=== PATIENT | female | born 1990 | race Caucasian/White ===

== ENCOUNTER 2016-11-21 12:31 | Outpatient (CLI) | payer BC ==
[~2016-11-21] VITALS: Ht 165.1 cm; Wt 80.5 kg
[2016-11-21 13:00] VITALS: BP 119/66; PULSE 72; TEMP 98.3
[2016-11-21] MEDS ORDERED: PRENATAL1 TA7 PO (13:43)
== END 2016-11-21 14:10 | disposition home or self-care (01) ==
LOC: LDRO 12:31
DX: Z03.71 Encounter for suspected problem with amniotic cavity and membrane ruled out (principal)

== ENCOUNTER 2017-01-26 20:33 | Outpatient (CLI) | payer BC ==
[~2017-01-26] VITALS: Ht 165.1 cm; Wt 84.1 kg
[~2017-01-26 20:33] MED LIST: PRENATAL1 TA7 PO
[2017-01-26 20:59] VITALS: BP 128/75; PULSE 90; TEMP 98.3
[2017-01-26 21:15] VITALS: BP 128/72; PULSE 78; TEMP 98.3
[2017-01-26 22:00] VITALS: BP 115/59; PULSE 81
== END 2017-01-26 22:05 | disposition home or self-care (01) ==
LOC: LDRO 20:33
DX: O62.9 Abnormality of forces of labor, unspecified (principal); Z3A.38 38 weeks gestation of pregnancy

== ENCOUNTER 2017-02-10 07:00 | Inpatient (IN) | payer BC ==
[~2017-02-10] VITALS: Ht 165.1 cm; Wt 84.5 kg
[2017-02-10] VITALS (43 sets, daily range): BP systolic 95–141; BP diastolic 54–79; PULSE 59–104; TEMP 98.6–99.1
[2017-02-10 08:31] LABS: MEAN CELL VOLUME 83 fl (80.0-100.0); MEAN CORPUSCULAR HGB CONC 34 g/dl (33.0-37.0); PLATELET COUNT 209 K/mm3 (130-400); RED BLOOD COUNT 3.78 M/mm3 (4.10-5.30); WHITE BLOOD COUNT 7.6 K/mm3 (4.8-10.8)
[2017-02-10 08:41] LABS: ADD PATHOLOGY DIFF REVIEW NO; HEMATOCRIT 31.2 % (37.0-47.0); HEMOGLOBIN 10.5 g/dl (12.5-16.0); MEAN CORPUSCULAR HEMOGLOBIN 28 pg (27.0-31.0)
[2017-02-10 09:38] LABS: BAND 14 % (0-10); EOSINOPHIL 1 % (0-4); MICROCYTOSIS 1+; NEUTROPHILS 59 % (42.0-75.2); PLATELET ESTIMATE NORMAL (NORMAL); TOTAL CELLS COUNTED 100
[2017-02-11 03:00] VITALS: BP 116/67; PULSE 64; TEMP 98.1
[2017-02-11 03:40] VITALS: BP 116/67; PULSE 64; TEMP 98.1
[2017-02-11 06:25] LABS: HEMATOCRIT 28.8 % (37.0-47.0); HEMOGLOBIN 9.8 g/dl (12.5-16.0)
[2017-02-11] MEDS ORDERED: IBU800 M1 PO (08:46)
[2017-02-11] MEDS ORDERED: PERCOCET 325 MG1 TA2 PO (08:46)
[2017-02-11 09:39] VITALS: BP 101/58; PULSE 60
[2017-02-11 20:10] VITALS: BP 122/60; PULSE 75; TEMP 98.7
[2017-02-12 06:40] VITALS: BP 118/68; PULSE 60; TEMP 98.1
== END 2017-02-12 13:05 | disposition home or self-care (01) | DRG 775 ==
LOC: OB 07:00 → LDR 07:00 → OB 21:30
PROVIDERS: Obstetrics & Gynecology
PROC: 10E0XZZ Delivery of Products of Conception, External Approach (ICD-10-PCS; principal; 2017-02-10)
PROC: 0KQM0ZZ Repair Perineum Muscle, Open Approach (ICD-10-PCS; 2017-02-10)
PROC: 3E033VJ Introduction of Other Hormone into Peripheral Vein, Percutaneous Approach (ICD-10-PCS; 2017-02-10)
DX: O48.0 Post-term pregnancy (principal); O99.013 Anemia complicating pregnancy, third trimester; D64.9 Anemia, unspecified; O70.1 Second degree perineal laceration during delivery; Z3A.41 41 weeks gestation of pregnancy; Z37.0 Single live birth
CPT/HCPCS: J1200; J2210; J2405; J2590; J7120

== ENCOUNTER → 2020-10-06 | Outpatient (CLI) | payer BC ==
[~2020-10-06] MED LIST changes: +COLACE 100100 MG/CAP PO; +FERROUS SU325 MG/TAB PO; +IBU800 M1 PO; +PERCOCET 325 MG1 TA2 PO; +PROBIOTIC FORMU1 CAP PO
== END ==
LOC: ZCOL.LAB 09:16
DX: Z20.822 Contact with and (suspected) exposure to COVID-19 (principal)

== ENCOUNTER 2020-10-11 09:43 | Inpatient (IN) | payer BC ==
[2020-10-11] VITALS (9 sets, daily range): BP systolic 100–136; BP diastolic 58–83; PULSE 72–95; TEMP 98.3
[~2020-10-11] VITALS: Ht 152.4 cm; Wt 89.5 kg
[~2020-10-11 09:43] MED LIST changes: -COLACE 100100 MG/CAP PO; -FERROUS SU325 MG/TAB PO; -PROBIOTIC FORMU1 CAP PO
[2020-10-11 20:21] LABS: BASO % 0.2 % (0.0-2.0); EOS # 0.1 (0.0-0.7); GRAN # 6.5 (1.4-6.5); GRAN % 65.7 % (42.2-75.2); HEMATOCRIT 34.1 % (37.0-47.0); HEMOGLOBIN 11.8 g/dl (12.5-16.0); LYMPH # 2.5 (1.2-3.4); LYMPH % 25.3 % (20.0-51.0); MEAN CELL VOLUME 82 fl (80.0-100.0); MEAN CORPUSCULAR HEMOGLOBIN 29 pg (27.0-31.0); MEAN CORPUSCULAR HGB CONC 35 g/dl (33.0-37.0); MEAN PLATELET VOLUME 11.3 fl (7.4-10.4); MONO # 0.7 (0.1-0.6); MONO % 6.8 % (1.7-9.3); PLATELET COUNT 212 K/mm3 (130-400); RED BLOOD COUNT 4.14 M/mm3 (4.10-5.30); REDCELL DISTRIBUTION WIDTH-CV 13.5 % (11.5-14.5)
[2020-10-11] MEDS ORDERED: PROBIOTIC FORMU1 CAP PO (20:46)
[2020-10-11] MEDS ORDERED: FERROUS SU325 MG/TAB PO (20:47)
[2020-10-11] MEDS ORDERED: COLACE 100100 MG/CAP PO (20:48)
--- NOTE | 2020-10-11 21:00 | NUR ---
Attempt at SVE. Pt tenses before perineum touched, encouraged pt to deep breathe and relax. Pt pulls knees together and moves away from SVE, unable to public speaking coach pt to relax enough to reach cervix. Pt asks nurse to stop.
--- NOTE | 2020-10-11 23:30 | NUR ---
Pt reports contractions "getting pretty painful". Discus with pt that next cytotech dose due @ 0000 and with contractions increasing may need SVE prior to dosing.
[2020-10-12] VITALS (50 sets, daily range): BP systolic 95–178; BP diastolic 51–87; PULSE 59–103; TEMP 97.6–98.8
--- NOTE | 2020-10-12 00:35 | NUR ---
Dr Grider @ bedside. Bedside sono confirms vertex. DR Grider attempts SVE. Pt tense, tolerates poorly.
--- NOTE | 2020-10-12 04:55 | NUR ---
SVE 1/-3 posterior, external os loose (3cm), no bloody show or loss of fluid. Pt tense with exam but tolerates better than previous exams.
--- NOTE | 2020-10-12 07:44 | NUR ---
Pt off monitors to shower at this time.
--- NOTE | 2020-10-12 12:17 | NUR ---
1205 - Dr. Grider to pt bedside. SVE per provider -/-2. AROM, clear fluid noted. Pt repositioned sitting up in "montez position". Pt denies further needs at this time.
--- NOTE | 2020-10-12 13:57 | NUR ---
1315 - Dr. Grider to pt bedside, reviews FHR strip. SVE per provider /-2. Pt repositioned RL with LL in stirrup. Pt states she is comfortable with epidural, denies further needs at this time.
--- NOTE | 2020-10-12 16:13 | NUR ---
1454 - Pt states she is having pressure with contractions and pain in her back on the left side. SVE 8/100/-[address]. [address] Grider notified. Pt returned to montez position. 1515 - SVE 10/100/0. Pt comfortable and breathing through contractions. Dr. Grider notified, on way to unit. Per physician, may start pushing with pt. 1519 - Marsh catheter removed. 1520 - Pt starts pushing with contraction, this RN and spouse at bedside. With second push, infant's head moved well in canal. Pushing stopped at this time to wait for physician. Pt continues breathing through contractions. 1531 - Dr. Grider to pt bedside. Pt repositioned for delivery. Chet Trujillo RN and Kady Wolff RN of nursery to bedside. 1534 - Female infant born via attended by Dr. Grider. Nuchal x1. Infant placed on mother's abdomen where dried and stimulated. Care of infant transferred to Kady Wolff RN of nursery. Cord blood collected. Repair of 2nd degree laceration performed by Dr. Grider. 1548 - Placenta spontaneously delivered by Dr. Grider. Fundal massage provided. Pericare provided, ice pack placed. Pitocin started per protocol. Pt repositioned for comfort, denies further needs at this time.
[2020-10-13] VITALS: BP 123/79; PULSE 69; TEMP 98
[2020-10-13] MEDS ORDERED: IBU800 M1 PO (08:21)
[2020-10-13] MEDS ORDERED: PERCOCET 325 MG1 TA2 PO (08:21)
[2020-10-13 08:28] VITALS: BP 124/78; PULSE 86; TEMP 97.8
--- NOTE | 2020-10-13 08:57 | NUR ---
Follow-up visit; Patient thanked [employer] for looking in on her and her family again today and wishing them well.
[2020-10-13 16:11] VITALS: BP 116/72; PULSE 78; TEMP 98.1
[2020-10-13 19:00] VITALS: BP 112/63; PULSE 68; TEMP 98
[2020-10-14 02:35] VITALS: BP 120/68; PULSE 75; TEMP 98.1
[2020-10-14 07:45] VITALS: BP 113/74; PULSE 66; TEMP 98.4
== END 2020-10-14 11:00 | disposition home or self-care (01) | DRG 807 ==
LOC: OB 09:43 → LDR 19:00 → OB 10-12 18:05
PROVIDERS: ADMIT Student in an Organized Health Care Education/Training Program
PROC: 10E0XZZ Delivery of Products of Conception, External Approach (ICD-10-PCS; principal; 2020-10-12)
PROC: 10907ZC Drainage of Amniotic Fluid, Therapeutic from Products of Conception, Via Natural or Artificial Opening (ICD-10-PCS; 2020-10-12)
PROC: 3E0P7VZ Introduction of Hormone into Female Reproductive, Via Natural or Artificial Opening (ICD-10-PCS; 2020-10-12)
PROC: 3E033VJ Introduction of Other Hormone into Peripheral Vein, Percutaneous Approach (ICD-10-PCS; 2020-10-12)
DX: O70.1 Second degree perineal laceration during delivery (principal); Z37.0 Single live birth; Z3A.39 39 weeks gestation of pregnancy
CPT/HCPCS: J1200; J2590; J7120